=== PATIENT | male | born 1985 | race Hispanic/Latino ===

== ENCOUNTER 2022-01-22 17:11 | Emergency (ER) | payer OTHER, BC ==
[~2022-01-22] VITALS: Ht 162.6 cm; Wt 86.0 kg
[~2022-01-22 17:11] MED LIST: ADVAIR DISKUS IN; CEPHALEXIN500 M1 PO; DUONEB IN; FLONASE NASAL50 MCG; LISINOP/HCTZ1 TA2 PO; MEDDOSEPAK PO; ULTRAM50 M1 PO; ZYRTEC-D ALG PO
[2022-01-22 17:25] VITALS: BP 129/80
[2022-01-22 19:29] VITALS: BP 129/80
== END 2022-01-22 19:34 | disposition home or self-care (01) | DRG 556 ==
LOC: ED 17:11
DX: M25.511 Pain in right shoulder (principal); M25.521 Pain in right elbow; M25.531 Pain in right wrist; I10 Essential (primary) hypertension; V49.40XA Driver injured in collision with unspecified motor vehicles in traffic accident, initial encounter